=== PATIENT | male | born 1950 | race Two or more races ===

== ENCOUNTER 2023-09-28 13:22 | Inpatient (IN) | payer OTHER, BC ==
[2023-09-28 14:12] LABS: INR 1.74 (0.83-1.09); PROTHROMBIN TIME (PATIENT) 20.1 SEC (9.7-13.0)
[2023-09-28 14:15] LABS: ACTIVATED PTT 38.7 SECONDS (25.2-36.5)
[2023-09-28 14:18] LABS: HEMATOCRIT 45.4 % (35.4-49); HEMOGLOBIN 15.1 G/dL (11.7-16.9); MCH 32.3 pg (25.7-33.7); MCHC 33.3 g/dl (32.0-35.9); MEAN PLT VOLUME 7.9 fl (7.5-11.1); PLATELET COUNT 175.6 10^3/uL (134-434); RBC 4.68 10^6/uL (4.00-5.60); RDW 15.2 % (11.9-15.9); WHITE BLOOD COUNT 7.4 10^3/uL (4.0-10.8)
[2023-09-28 14:22] LABS: PLATELET ESTIMATE ADEQUATE
[2023-09-28] MEDS ORDERED: dilTIAZem HCL 125 MG/25 ML - 25 ML VIAL ONE ×2 (15:23→15:54)
[2023-09-28] MEDS ORDERED: dilTIAZem HCL 50 MG/10 ML - 10 ML VIAL IVPUSH ONE ×2 (15:23→17:02)
[2023-09-28 15:27] LABS: CALCIUM 8.6 mg/dL (8.5-10.1)
[2023-09-28 15:28] LABS: ALBUMIN 3.8 g/dl (3.4-5.0); BLOOD UREA NITROGEN 15.4 mg/dL (7-18)
[2023-09-28 15:31] LABS: CREATININE 0.9 mg/dL (0.55-1.3)
[2023-09-28 15:32] LABS: BILIRUBIN,TOTAL 1.6 mg/dL (0.2-1)
[2023-09-28 15:33] LABS: TOT PROT 6.8 g/dl (6.4-8.2)
[2023-09-28] MEDS ORDERED: dilTIAZem HCL 30 MG TABLET PO ONE (17:32)
[2023-09-28] MEDS ORDERED: dilTIAZem HCL 30 MG TABLET ONE (17:33)
[2023-09-28] MEDS ORDERED: DOCUSATE SODIUM 100 MG CAPSULE (FP) PO PRN (19:26)
[2023-09-28] MEDS ORDERED: ACETAMINOPHEN 325 MG TABLET (FP) PO PRN (19:26)
[2023-09-28 21:40] VITALS: BMI 29.4
[2023-09-28] MEDS: APIXABAN 5 MG TABLET PO SCH (23:00)
[2023-09-29] MEDS ORDERED: dilTIAZem HCL 30 MG TABLET PO ONE (02:23)
[2023-09-29] MEDS ORDERED: FUROSEMIDE 40 MG/4 ML INJECTABLE VIAL IVPUSH ONE (07:21)
[2023-09-29 09:27] LABS: HEMATOCRIT 45.2 % (35.4-49); HEMOGLOBIN 14.7 G/dL (11.7-16.9); MCH 31.5 pg (25.7-33.7); MCHC 32.4 g/dl (32.0-35.9); MEAN CELL VOLUME 96.9 fl (80-96); MEAN PLT VOLUME 8.1 fl (7.5-11.1); PLATELET COUNT 201.7 10^3/uL (134-434); RBC 4.66 10^6/uL (4.00-5.60); RDW 15.1 % (11.9-15.9)
[2023-09-29] MEDS: APIXABAN 5 MG TABLET PO SCH ×2 (10:05→22:02)
[2023-09-29 10:27] LABS: POTASSIUM 4.4 mmol/L (3.5-5.1)
[2023-09-29 10:29] LABS: CALCIUM 8.7 mg/dL (8.5-10.1)
[2023-09-29 10:30] LABS: MAGNESIUM 2.2 mg/dL (1.8-2.4)
[2023-09-29 10:33] LABS: CREATININE 0.8 mg/dL (0.55-1.3); PHOSPHOROUS 2.8 mg/dL (2.5-4.9)
[2023-09-30] MEDS: dilTIAZem HCL 50 MG/10 ML - 10 ML VIAL IVPUSH PRN ×3 (08:41→18:49)
[2023-09-30] MEDS: APIXABAN 5 MG TABLET PO SCH ×2 (09:31→21:29)
[2023-09-30] MEDS ORDERED: FUROSEMIDE 40 MG/4 ML INJECTABLE VIAL IVPUSH SCH (10:00)
[2023-10-01 02:08] VITALS: RESP 18
[2023-10-01] MEDS: FUROSEMIDE 40 MG TABLET (FP) PO SCH ×2 (08:09→13:43)
[2023-10-01] MEDS ORDERED: METOPROLOL SUCCINATE 100 MG, METOPROLOL SUCCINATE 25 MG PO SCH (08:15)
[2023-10-01] MEDS: APIXABAN 5 MG TABLET PO SCH (09:19)
[2023-10-01 09:21] VITALS: BP 144/99; PULSE 101; TEMP 98.6
[2023-10-01 09:47] LABS: BILIRUBIN,TOTAL 1.2 mg/dl (0.2-1); CREATININE 0.8 mg/dl (0.6-1.3); POTASSIUM 3.8 mmol/L (3.5-5.1); TOT PROT 6.2 g/dl (6.4-8.2)
[2023-10-01 10:04] LABS: HEMATOCRIT 44.5 % (35.4-49); HEMOGLOBIN 15.2 GM/dL (11.7-16.9); MCHC 34.3 g/dl (32.0-35.9); MEAN CELL VOLUME 93.3 fl (80-96); PLATELET COUNT 234 10^3/uL (134-434); RBC 4.77 M/mm3 (4.00-5.60); RDW 14.3 % (11.9-15.9); WHITE BLOOD COUNT 8.7 K/mm3 (4.0-10.0)
== END 2023-10-01 14:33 | disposition home or self-care (01) | DRG 291 ==
LOC: FER 13:22 → FM/S 16:53 → JERBED 18:09 → INTOOBSV 18:09 → UNDOADMOB 18:09 → OBSVTOIN 09-30 14:05
PROVIDERS: ADMIT Internal Medicine; ATTEND Internal Medicine
DX: I11.0 Hypertensive heart disease with heart failure (principal); I50.33 Acute on chronic diastolic (congestive) heart failure; I50.32 Chronic diastolic (congestive) heart failure; I48.91 Unspecified atrial fibrillation; E78.5 Hyperlipidemia, unspecified; R00.0 Tachycardia, unspecified; Z85.118 Personal history of other malignant neoplasm of bronchus and lung
CPT/HCPCS: 0241U-QW; 36415; 71045-TC-FY; 80048; 80053; 83735; 83880; 84100; 84439; 84443; 84484; 85025; 85027; 85610; 85730; 93005; 93010; 93306-TC; 94761; 99285-25; G0378